=== PATIENT | female | born 1940 | race Caucasian/White ===

== ENCOUNTER 2017-11-06 09:07 | Day surgery (SDC) | payer MEDICARE ==
[~2017-11-06 09:07] MED LIST: Acetaminophen TAB* 325 MG PO PRN; Buffered Lidocaine 0.9% SYRIN* 5 ML/SYR SYRINGE INTRADERM ONE; Midazolam* 1 MG/ML 2 ML VIAL (2 MG) ONE
[2017-11-06] MEDS ORDERED: Labetalol IV* 5 MG/ML 20 ML VIAL ONE (11:13)
[2017-11-06] MEDS ORDERED: diPHENhydraMINE IV* 50 MG/ML 1 ml VIAL (BENADRYL) ONE (11:16)
[2017-11-06] MEDS ORDERED: Sodium Chloride * 10 ML ONE (11:33)
[2017-11-06] MEDS ORDERED: Lidocaine 2% EPI 1:200000 MPF* 20 ML VIAL ONE (11:59)
[2017-11-06] MEDS ORDERED: Cyclopentolate 1% OPTH.SOL* 2 ML BTL ONE (11:59)
[2017-11-06] MEDS ORDERED: acetaZOLAMIDE TAB* 250 MG ONE (11:59)
[2017-11-06] MEDS ORDERED: Lidocaine 1% MPF* 2 ML VIAL ONE (11:59)
[2017-11-06] MEDS ORDERED: Neomycin/Polymy/Dex OPTH.SUSP* MAXITROL 0.1% 5 ML ONE (11:59)
[2017-11-06] MEDS ORDERED: Ketorolac 0.5% OPHTH (NF) 0.5 % 5 ML BTL ONE (12:00)
[2017-11-06] MEDS ORDERED: Proparacaine 0.5% OPHTH.SOL* 15 ML BTL ONE (12:00)
[2017-11-06] MEDS ORDERED: Povidone Iodine 5% OPTH* 30 ML BTL ONE (12:00)
[2017-11-06] MEDS ORDERED: Phenylephrine 2.5% OPTH.SOL* 2 ML BTL ONE (12:00)
[2017-11-06 12:24] VITALS: BP 156/85
--- NOTE | 2017-11-06 16:21 | OP ---
DATE OF OPERATION: 11/06/2017 - [facility] DATE OF : 1940. SURGEON: Karlo Ochoa M.D. PREOPERATIVE DIAGNOSIS: Cataract right eye. POSTOPERATIVE DIAGNOSIS: Cataract right eye. OPERATIVE PROCEDURE: Extracapsular cataract extraction with intraocular lens implant right eye and iStent. DESCRIPTION OF PROCEDURE: The patient was brought to the operating room after being given 1/2% Alcaine with epinephrine drops in the preoperative area. The eye was prepped and draped in the usual sterile fashion. Sterile drape and eyelid speculum were placed. Again, topical 1/2% Alcaine with epinephrine was given. A paracentesis incision was made at the 9 o'clock position with the No.75 blade. Clear cornea incision 2.2 x 2.2-mm was created at the 12 o'clock position starting at the anterior limbus using the 2.2-mm keratome. The anterior chamber was irrigated with 0.4 mL of 1% non-preservative intracameral lidocaine and filled with DisCoVisc. A capsulorrhexis was completed using the cystotome and the Utrata forceps. Hydrodissection was performed with balanced salt solution. The lens nucleus was removed with the Phacoemulsification handpiece without incident. Cortex was removed with the irrigation-aspiration handpiece. The capsular bag was re-inflated using DisCoVisc and an [id number] 19.5 implant was inserted with the shooter, followed by an iStent [id number] inserted with its shooter into the trabecular meshwork at the 3 o'clock position. The irrigation-aspiration handpiece was used to remove all residual DisCoVisc. The eye was refilled with balanced salt solution and the wound checked and found to be watertight. Topical Maxitrol drops were given. [id number]/[facility] #: [id number] [facility]
== END 2017-11-06 12:25 | disposition home or self-care (01) ==
LOC: OREAST 09:07
PROVIDERS: ATTEND Specialist
DX: H25.813 Combined forms of age-related cataract, bilateral (principal); H40.1132 Primary open-angle glaucoma, bilateral, moderate stage; H25.21 Age-related cataract, morgagnian type, right eye; I10 Essential (primary) hypertension; E78.00 Pure hypercholesterolemia, unspecified; E78.5 Hyperlipidemia, unspecified; E87.6 Hypokalemia
CPT/HCPCS: A9270-GY; C1783; J1200; J2250; V2632

== ENCOUNTER → 2018-11-07 06:59 | Day surgery (SDC) | payer MEDICARE ==
[~2018-11-07 06:59] MED LIST changes: +Acetaminophen TAB* 325 MG ONE; -Acetaminophen TAB* 325 MG PO PRN; +Bupivacaine 0.25% SDV PF* 10 ML VIAL INJ ONE; +Bupivacaine 0.25% W/EPI* 10 ML SDV ONE; +Heparin VIAL(*) 5000 UNITS/ML VIAL (FIVE THOUSAND) ONE; +Lactated Ringers 1000 ML Bag* 1,000 ML IV SCH; +Lidocain 1% EPI 1:100,000 * 30 ML MDV ONE; +Lidocaine 2% PF * 5 ML VIAL ONE; +Lidocaine 2.5%/Prilocain 2.5%* 5 GM TUBE ONE; +Methylene Blue 0.5 %* 50 MG/10 ML AMP IV ONE; -Midazolam* 1 MG/ML 2 ML VIAL (2 MG) ONE; +Midazolam* 1 MG/ML 5 ML VIAL (5 MG) ONE; +Mineral Oil Sterile, TOPICAL* 25 ML BTL ONE; +Naloxone* 0.4 MG/ML 1 ML VIAL IV PRN; +Propofol* 10 MG/ML 20 ML BTL ONE; +ceFAZolin 2 GM PREMIX in ORs 2 GM/50 ML BAG IVPB ONE; +fentaNYL* 50 MCG/ML 2 ML VIAL (100 MCG VIAL) ONE; +hydrALAZINE IV* 20 MG/ML VIAL ONE
[2018-11-07 15:46] VITALS: BP 135/79
== END | disposition home or self-care (01) ==
LOC: OR 06:59
PROVIDERS: ATTEND Plastic Surgery
DX: C43.72 Malignant melanoma of left lower limb, including hip (principal); C77.4 Secondary and unspecified malignant neoplasm of inguinal and lower limb lymph nodes; I10 Essential (primary) hypertension; E78.00 Pure hypercholesterolemia, unspecified; Z85.41 Personal history of malignant neoplasm of cervix uteri
CPT/HCPCS: 78195; 88305; 88307; 88341; 88342; A9270-GY; A9541; C1776; J0360; J0690; J1644; J2250; J2704; J3010; J3490